=== PATIENT | female | born 1995 | race Caucasian/White ===

== ENCOUNTER 2020-09-05 14:36 | Emergency (ER) | payer BC ==
[~2020-09-05] VITALS: Ht 167.6 cm; Wt 65.8 kg
[2020-09-05 15:15] VITALS: BP_SYST 118
[2020-09-05] MEDS ORDERED: NACL 0.9% 1,000 ML IV ONE (16:15)
[2020-09-05 16:38] LABS: BASOPHILS % (AUTO) 0.7 % (0.0-2.0); EOSINOPHILS % (AUTO) 0.7 % (0.0-4.0); HEMOGLOBIN 12.7 g/dL (12.0-16.0); LYMPHOCYTES # (AUTO) 1.6 K/uL (1.0-5.5); LYMPHOCYTES % (AUTO) 24.3 % (20.5-51.5); MEAN CORPUSCULAR HEMOGLOBIN 27 pg (27-31); MEAN CORPUSCULAR HGB CONC 33 % (32-36); MEAN CORPUSCULAR VOLUME 84 fL (79.0-98.0); MONOCYTES # (AUTO) 0.5 K/uL (0.0-1.0); MONOCYTES % (AUTO) 7.9 % (1.7-9.3); NEUTROPHILS # (AUTO) 4.3 K/uL (1.8-7.7); NEUTROPHILS % (AUTO) 66.4 % (40.0-70.0); PLATELET COUNT (AUTO) 250 K/uL (130-430); RED BLOOD CELL COUNT(AUTO) 4.66 MIL/uL (4.2-6.2); RED CELL DISTRIBUTION WIDTH 14.9 % (9.0-15.0); WHITE BLOOD COUNT (AUTO) 6.5 K/uL (4.8-10.8)
[2020-09-05 16:50] LABS: CALCIUM 8.9 mg/dL (8.4-11.0); CREATININE 0.88 mg/dL (0.55-1.30); POTASSIUM 3.7 mmol/L (3.5-5.1)
[2020-09-05 16:52] LABS: PROTHROMBIN TIME 10.3 SECS (9.5-12.5)
[2020-09-05 16:56] LABS: ALBUMIN 3.9 g/dL (3.4-4.8); TOTAL BILIRUBIN 0.2 mg/dL (0.0-1.0)
[2020-09-05 18:58] VITALS: BP_SYST 118
== END 2020-09-05 18:59 | disposition home or self-care (01) ==
LOC: SED 14:36
DX: K62.5 Hemorrhage of anus and rectum (principal); Z88.0 Allergy status to penicillin
CPT/HCPCS: 36415; 74176; 76376; 80053; 85025; 85610; 85730; 96360; 99284; J7030